=== PATIENT | male | born 2000 | race African-American/Black ===

== ENCOUNTER 2022-03-22 20:38 | Emergency (ER) | payer BC ==
[2022-03-22] MEDS ORDERED: Ondansetron ODT 4 MG TAB ONE (21:21)
[2022-03-22] MEDS ORDERED: Dicyclomine 20 MG TAB ONE (21:22)
== END 2022-03-22 21:45 | disposition home or self-care (01) ==
LOC: CSHERS 20:38
DX: R11.2 Nausea with vomiting, unspecified (principal); R19.7 Diarrhea, unspecified; I10 Essential (primary) hypertension
CPT/HCPCS: 99283; Q0162

== ENCOUNTER 2024-03-17 00:22 | Emergency (ER) | payer BC | END 2024-03-17 00:38 | disposition home or self-care (01) | LOC: CSHERS 00:22 | DX: L01.02 Bockhart's impetigo (principal); I10 Essential (primary) hypertension | CPT/HCPCS: 99283 ==